=== PATIENT | female | born 1945 ===

== ENCOUNTER 2021-10-15 17:08 | Observation (INO) | payer OTHER ==
[2021-10-15 17:47] VITALS: RESP 18
[2021-10-15] MEDS ORDERED: DIPHTH,PERTUSS(ACELL),TET 0.5 ML DISP.SYRIN IM ONE ×2 (17:47→18:10)
[2021-10-15] MEDS ORDERED: ACETAMINOPHEN 500 MG TABLET (FP) PO ONE (17:47)
[2021-10-15] MEDS ORDERED: ACETAMINOPHEN 500 MG TABLET (FP) ONE (18:12)
[2021-10-15 18:34] LABS: BASO % 0.6 % (0-2.0); EOS % 0.4 % (0-4.5); HEMATOCRIT 40.7 % (32.4-45.2); HEMOGLOBIN 12.7 GM/dL (10.7-15.3); LYMPH % 5.6 % (8-40); MCH 24.1 pg (25.7-33.7); MCHC 31.3 g/dl (32.0-36.0); MEAN PLT VOLUME 10.5 fl (7.5-11.1); MONO % 3.7 % (3.8-10.2); NEUT % 89.7 % (42.8-82.8); PLATELET COUNT 231 10^3/uL (134-434); RBC 5.29 M/mm3 (3.60-5.2); RDW 21.3 % (11.6-15.6)
[2021-10-15 18:36] LABS: INR 1.05 (0.83-1.09); PROTHROMBIN TIME (PATIENT) 12.1 SEC (9.7-13.0)
[2021-10-15 18:51] LABS: CALCIUM 9.4 mg/dL (8.5-10.1)
[2021-10-15 18:52] LABS: ALBUMIN 3.8 g/dl (3.4-5.0); MAGNESIUM 2.5 mg/dL (1.8-2.4)
[2021-10-15 18:55] LABS: CREATININE 0.9 mg/dL (0.55-1.3)
[2021-10-15 18:57] LABS: BILIRUBIN,TOTAL 0.6 mg/dL (0.2-1)
[2021-10-15 19:38] LABS: ANISOCYTOSIS 2+; MACROCYTOSIS 2+; PLATELET ESTIMATE NORMAL
[2021-10-15 20:53] LABS: PH,URINE 6.5 (5.0-8.0); URINE APPEARANCE CLEAR; URINE BILIRUBIN NEGATIVE (NEGATIVE); URINE COLOR YELLOW; URINE GLUCOSE (UA) NEGATIVE (NEGATIVE); URINE KETONE TRACE (NEGATIVE); URINE LEUK ESTERASE NEGATIVE (NEGATIVE); URINE NITRITE NEGATIVE (NEGATIVE); URINE PROTEIN NEGATIVE (NEGATIVE); URINE UROBILINOGEN 0.2 mg/dL (0.2-1.0)
[2021-10-15] MEDS ORDERED: ACETAMINOPHEN 325 MG TABLET (FP) PO PRN (22:40)
[2021-10-15] MEDS ORDERED: amLODIPine BESYLATE 5 MG TABLET (FP) ONE (23:22)
[2021-10-15] MEDS: amLODIPine BESYLATE 5 MG TABLET (FP) PO SCH (23:27)
[2021-10-15 23:38] LABS: CALCIUM 9.4 mg/dL (8.5-10.1)
[2021-10-15 23:39] LABS: BLOOD UREA NITROGEN 20.2 mg/dL (7-18)
[2021-10-15 23:42] LABS: CREATININE 0.7 mg/dL (0.55-1.3)
[2021-10-16] MEDS ORDERED: ENOXAPARIN NA (PORCINE) 40 MG/0.4 ML DISP.SYRIN SQ ONE (09:06)
[2021-10-16] MEDS ORDERED: amLODIPine BESYLATE 5 MG TABLET (FP) ONE (09:06)
[2021-10-16] MEDS: amLODIPine BESYLATE 5 MG TABLET (FP) PO SCH (09:11)
[2021-10-16] MEDS: ENOXAPARIN NA (PORCINE) 40 MG/0.4 ML DISP.SYRIN SQ SCH (09:11)
[2021-10-16 11:23] LABS: BASO % 0.3 % (0-2.0); EOS % 2.2 % (0-4.5); HEMATOCRIT 40.4 % (32.4-45.2); HEMOGLOBIN 12.7 GM/dL (10.7-15.3); LYMPH % 11.8 % (8-40); MCH 24.4 pg (25.7-33.7); MCHC 31.5 g/dl (32.0-36.0); MEAN CELL VOLUME 77.5 fl (80-96); MEAN PLT VOLUME 10.2 fl (7.5-11.1); MONO % 6.3 % (3.8-10.2); NEUT % 79.4 % (42.8-82.8); PLATELET COUNT 231 10^3/uL (134-434); RBC 5.21 M/mm3 (3.60-5.2); RDW 20.9 % (11.6-15.6); WHITE BLOOD COUNT 9.1 K/mm3 (4.0-10.0)
[2021-10-16 11:57] LABS: ALBUMIN 3.6 g/dl (3.4-5.0); BLOOD UREA NITROGEN 15.9 mg/dL (7-18); CALCIUM 9.1 mg/dL (8.5-10.1); CREATININE 0.7 mg/dL (0.55-1.3); MAGNESIUM 2.5 mg/dL (1.8-2.4); PHOSPHOROUS 3.2 mg/dL (2.5-4.9); TOT PROT 6.8 g/dl (6.4-8.2)
[2021-10-16 12:45] VITALS: BMI 21.9
[2021-10-16] MEDS: SODIUM CHLORIDE 1,000 ML IV SCH (14:20)
[2021-10-16] MEDS: ATORVASTATIN CA 10 MG TABLET (FP) PO SCH (21:40)
[2021-10-17] MEDS: SODIUM CHLORIDE 1,000 ML IV SCH (07:17)
[2021-10-17 07:47] LABS: HEMATOCRIT 34.9 % (32.4-45.2); HEMOGLOBIN 11.3 GM/dL (10.7-15.3); MCH 24.5 pg (25.7-33.7); MCHC 32.4 g/dl (32.0-36.0); MEAN CELL VOLUME 75.5 fl (80-96); MEAN PLT VOLUME 10.5 fl (7.5-11.1); PLATELET COUNT 188 10^3/uL (134-434); RBC 4.62 M/mm3 (3.60-5.2); RDW 20.5 % (11.6-15.6); WHITE BLOOD COUNT 7.6 K/mm3 (4.0-10.0)
[2021-10-17 07:50] LABS: ALBUMIN 3.1 g/dl (3.4-5.0); BLOOD UREA NITROGEN 10.9 mg/dL (7-18); CALCIUM 8.3 mg/dL (8.5-10.1)
[2021-10-17 07:53] LABS: CREATININE 0.5 mg/dL (0.55-1.3)
[2021-10-17 07:55] LABS: TOT PROT 5.7 g/dl (6.4-8.2)
[2021-10-17] MEDS: ENOXAPARIN NA (PORCINE) 40 MG/0.4 ML DISP.SYRIN SQ SCH (09:02)
[2021-10-17] MEDS: amLODIPine BESYLATE 5 MG TABLET (FP) PO SCH (09:02)
[2021-10-17 13:52] LABS: PHOSPHOROUS 2.5 mg/dL (2.5-4.9)
[2021-10-17] MEDS: ATORVASTATIN CA 10 MG TABLET (FP) PO SCH (21:21)
[2021-10-18 08:18] LABS: HEMATOCRIT 36.3 % (32.4-45.2); HEMOGLOBIN 11.7 GM/dL (10.7-15.3); MCH 24.7 pg (25.7-33.7); MCHC 32.4 g/dl (32.0-36.0); MEAN CELL VOLUME 76.3 fl (80-96); MEAN PLT VOLUME 10.8 fl (7.5-11.1); PLATELET COUNT 190 10^3/uL (134-434); RBC 4.75 M/mm3 (3.60-5.2); RDW 19.9 % (11.6-15.6); WHITE BLOOD COUNT 8.2 K/mm3 (4.0-10.0)
[2021-10-18 08:40] LABS: CALCIUM 8.7 mg/dL (8.5-10.1)
[2021-10-18 08:41] LABS: ALBUMIN 3.2 g/dl (3.4-5.0); BLOOD UREA NITROGEN 8.4 mg/dL (7-18)
[2021-10-18 08:43] LABS: BILIRUBIN,TOTAL 0.9 mg/dL (0.2-1); CREATININE 0.5 mg/dL (0.55-1.3); TOT PROT 5.9 g/dl (6.4-8.2)
[2021-10-18] MEDS: amLODIPine BESYLATE 5 MG TABLET (FP) PO SCH (10:14)
[2021-10-18] MEDS: ENOXAPARIN NA (PORCINE) 40 MG/0.4 ML DISP.SYRIN SQ SCH (10:14)
[2021-10-18] MEDS ORDERED: POTASSIUM CHLORIDE TABS 20 MEQ TABLET.ER (FP) PO ONE ×2 (10:15→22:00)
[2021-10-18] MEDS: POTASSIUM CHLORIDE TABS 20 MEQ TABLET.ER (FP) PO SCH ×2 (11:06→13:24)
[2021-10-18 12:46] LABS: MAGNESIUM 1.9 mg/dL (1.8-2.4)
[2021-10-18 12:50] LABS: PHOSPHOROUS 2.6 mg/dL (2.5-4.9)
[2021-10-18 15:21] VITALS: BP 113/69; PULSE 58; TEMP 97.5
[2021-10-18 16:27] LABS: PHOSPHOROUS 3.1 mg/dL (2.5-4.9)
[2021-10-19] MEDS ORDERED: CLOPIDOGREL BISULFATE 75 MG TABLET (FP) PO SCH (10:00)
[2021-10-19] MEDS ORDERED: POTASSIUM CHLORIDE TABS 20 MEQ TABLET.ER (FP) PO SCH (10:00)
== END 2021-10-18 17:29 | disposition home or self-care (01) ==
LOC: JER 17:08 → JERBED 20:51 → J4W 10-16 09:53
PROVIDERS: ADMIT Internal Medicine; ATTEND Internal Medicine
PROC: 0HQ0XZZ Repair Scalp Skin, External Approach (ICD-10-PCS; principal; 2021-10-15)
PROC: 3E0234Z Introduction of Serum, Toxoid and Vaccine into Muscle, Percutaneous Approach (ICD-10-PCS; 2021-10-15)
DX: R55 Syncope and collapse (principal); W18.39XA Other fall on same level, initial encounter; Y93.89 Activity, other specified; Y92.89 Other specified places as the place of occurrence of the external cause; G30.9 Alzheimer's disease, unspecified; F02.80 Dementia in other diseases classified elsewhere, unspecified severity, without behavioral disturbance, psychotic disturbance, mood disturbance, and anxiety; Z95.5 Presence of coronary angioplasty implant and graft; Z85.038 Personal history of other malignant neoplasm of large intestine; I10 Essential (primary) hypertension; E78.5 Hyperlipidemia, unspecified; Z96.641 Presence of right artificial hip joint; D72.829 Elevated white blood cell count, unspecified
CPT/HCPCS: 0241U-QW; 12001-25; 36415; 70450-TC; 71045-TC-FY; 72100-TC-FY; 72125-TC; 73521-TC-FY; 80048; 80053; 81003; 83735; 84100; 84439; 84443; 84484; 85025; 85027; 85610; 85730; 87086; 90471; 90715; 93005; 93010; 97116-GP; 97162-GP; 99285-25; C9803-CS; G0378; U0003; U0005